=== PATIENT | female | born 1990 | race Caucasian/White ===

== ENCOUNTER 2016-08-19 21:14 | Emergency (ER) | payer OTHER ==
[~2016-08-19] VITALS: Ht 167.6 cm; Wt 68.5 kg
[~2016-08-19 21:14] MED LIST: CETI10CA PO; HC30CR25 TOP; NITR-58 PO; NIZ30CR2 TOP; PHEN-538 PO
[2016-08-19 21:55] VITALS: Ht 167.6 cm; Wt 68.5 kg
[2016-08-19] MEDS ORDERED: ACETAMINOPHEN 325 MG TAB PO ONE (23:30)
--- NOTE | 2016-08-19 23:47 | RADRPT ---
PROCEDURE: CHEST - 1 VIEW CLINICAL INDICATION: 25-year-old female with chest pain. TECHNIQUE: A single frontal AP upright portable view of the chest was performed. The images were reviewed on a PACS workstation. COMPARISON: None. FINDINGS: The cardiomediastinal silhouette has a normal appearance. There is no evidence for an infiltrate. T he pulmonary vascularity is within normal limits. There is no evidence for pneumothorax or pneumomed iastinum. The osseous structures are intact. IMPRESSION: No evidence for active cardiopulmonary disease. .Ezra Fletcher MD, MD Date Time Electronically viewed and signed by .Ezra Fletcher MD, on 08/19/2016 23:46 .M/
[2016-08-19] MEDS ORDERED: D-ME473S18 PO (23:52)
[2016-08-19] MEDS ORDERED: IBUP-1542 PO (23:52)
[2016-08-19] MEDS ORDERED: ACET325T33 PO (23:52)
[2016-08-19] MEDS ORDERED: BENZ1LOZ52 MM (23:56)
--- NOTE | 2016-08-20 00:06 | ERD ---
ER Documentation Chief Complaint Date/Time DATE: 08/19/16 TIME: 23:56 Chief Complaint Cough and rib pain since yesterday. fever and malaise HPI 25-year-old female presents with chief complaint of sore throat, cough, fever, and associated chest pain 2 days. Patient states that associated symptoms include pain with swallowing and loss of appetite. She currently rates her pain a 4 out of 10 in severity. She has not taken any medications for relief. She denies difficulty swallowing, drooling, vocal changes, palpitations, and nausea/vomiting. she denies any cardiac medical history. ROS All systems reviewed and are negative except as per history of present illness. Medications Home Meds Active Scripts Benzocaine/Menthol* (Cepacol* Sore Throat Lozenges) 1 Each Lozenge, 1 EACH MM q2h Y for SORE THROAT for 5 Days, #20 LOZENGE Prov:Zena Le PA-C 08/19/16 Acetaminophen* (Tylenol*) 325 Mg Tablet, 2 TAB PO Q6 Y for PAIN AND OR ELEVATED TEMP, #20 TAB Prov:Zena Le PA-C 08/19/16 Ibuprofen* (Motrin*) 600 Mg Tab, 600 MG PO Q6H Y for PAIN AND OR ELEVATED TEMP, #30 TAB Prov:Zena Le PA-C 08/19/16 Dextromethorphan Hb-Promethazine Hcl (Promethazine DM Syrup) 473 Ml Syrup, 5 ML PO Q6H for 5 Days, #4 OZ Prov:Zena Le PA-C 08/19/16 Ketoconazole* (Nizoral*) 2%-30 Gm Cream..g., 1 APPLIC TOP DAILY for 14 Days, TUB Prov:LEN IBARRA MD 03/27/16 Hydrocortisone* Topical (Hydrocortisone* Topical) 2.5%-28.3 Gm Cream..g., 1 APPLIC TOP BID for 10 Days, #1 TUB Prov:LEN IBARRA MD 03/27/16 Cetirizine Hcl* (Zyrtec*) 10 Mg Capsule, 10 MG PO DAILY, #30 TAB.CHEW Prov:LEN IBARRA MD 03/27/16 Reported Medications Phenazopyridine Hcl* (Pyridium*) 200 Mg Tab, 200 MG PO TID Y for DYSURIA, TAB 02/22/14 Nitrofurantoin Monohyd Macrocr* (Macrobid*) 100 Mg Capsr, 100 MG PO BID, CAP 02/22/14 Allergies Allergies: Coded Allergies: No Known Allergy (Unverified , 02/22/14) PMhx/Soc Medical and Surgical Hx: pt denies Surgical Hx History of Surgery: No Anesthesia Reaction: No Hx Neurological Disorder: No Hx Respiratory Disorders: No Hx Cardiac Disorders: No Hx Psychiatric Problems: Yes (anxiety) Hx Miscellaneous Medical Probl: Yes (DM2) Hx Alcohol Use: No Hx Substance Use: No Hx Tobacco Use: No Smoking Status: Never smoker Physical Exam Vitals Vital Signs Date Time Temp Pulse Resp B/P Pulse Ox O2 Delivery O2 Flow Rate FiO2 08/19/16 21:55 100.7 113 20 119/58 98 Physical Exam GENERAL: Non-toxic. No apparent signs of distress. HEENT: Atraumatic. Bilateral eyes are PERRL EOM intact. Normal conjunctiva, no injection. No eyelid or lower eyelid swelling noted. Ears: Normal tympanic membrane, no erythema or bulging. No ear canal swelling. No ear discharge. Nose : no nasal discharge. Throat: Oropharynx normal. Tongue pink and moist. Tonsillar erythema with no tonsillar exudate or erythema. No pooling of secretions. Uvula is midline. No trismus. No lymphadenopathy. LUNGS: Clear to auscultation. No accessory muscle use. No wheezing, no crackles. No signs or symptoms of respiratory distress. HEART: Regular rate and rhythm. No murmurs, clicks, rubs or gallops. BACK: No midline tenderness EXTREMITIES: No peripheral cyanosis or edema. No focal pain or notable trauma. Full range of motion. Good capillary refill. NEURO: The patient moves all 4 extremities with 5/5 strength. Cranial nerves are grossly intact. Normal mental status for age. Good muscle tone. SKIN: There is no apparent rash, petechiae, erythema or swelling. Good skin turgor. Results 24 hrs Current Medications Medications (Trade) Dose Ordered Sig/Opal Route PRN Reason Start Time Stop Time Status Last Admin Dose Admin Acetaminophen (Tylenol Tab) 650 mg ONCE ONCE PO 08/19/16 23:30 08/19/16 23:31 DC Procedures/MDM Patient presented with chest pain which is likely due to her cough, she states she has no cardiac history. Chest pain was not reproducible with pressure on the chest wall. I ordered an EKG and chest x-ray to rule out any acute cardiac abnormality or pneumonia. Patient given Tylenol for low-grade fever while waiting for results. Chest x-ray: IMPRESSION: No evidence for active cardiopulmonary disease. EKG: Rate/Rhythm: Normal Sinus Rhythm with rate of 80 bpm, artifact is present which is what likely caused EKG interpretation of sinus arrhythmia. However Dr. Ryder signed off on this EKG as normal. QRS, ST, T-waves: No changes consistent w/ acute ischemia Impression: No evidence of ischemia, normal EKG [place]: Normal I have low suspicion for pneumothorax, acute coronary syndrome, cardiac arrhythmia, and rib fracture. Patients multiple complaints are likely to be due to viral etiology. On examination there was no tonsillar edema or exudate, TMs were pink/pearly and non-bulging, lungs were CTAB w/o rhonchi or rales, and patient has no meningismus. Appears to be in NAD, vitals are stable. Therefore, I do not believe that any imaging or blood work is warranted. I have explained to the patient that antibiotics are not effective against viral infections, and can further contribute to antibiotic resistance. Patient advised to practice good hand hygiene to prevent spread of viruses. Patient advised to stay hydrated and use the following medications for symptomatic relief: - Tylenol to relieve [place]/fever/body aches. Patient advised to NOT exceed maximum daily dose of 3,000 mg. And Motrin 600mg (do NOT exceed 3200 mg per day ) - Phenergan DM for cough - Saline nasal mist for nasal dryness - Cepacol Lozenges for sore throat or warm salt water gargles I have a low suspicion for PE, pneumonia, TB, strep pharyngitis, peritonsillar abscess, epiglottitis, OM, meningitis, and sepsis. Patient is stable for discharge for and outpatient management at this time. Advised to follow-up with PCP within 1-2 days. Patient is afebrile at time of discharge. Departure Diagnosis: Primary Impression: Upper respiratory infection URI type: unspecified URI Qualified Code: J06.9 - Upper respiratory tract infection, unspecified type Condition: Good Patient Instructions: Preventing Common Respiratory Infections Additional Instructions: Call your primary care doctor TOMORROW for an appointment during the next 1-2 days.See the doctor sooner or return here if your condition worsens before your appointment time. Zena Le PA-C Aug 20, 2016 00:06
[2016-08-20 00:32] VITALS: BP 126/68; PULSE 78; RESP 20; TEMP 98.7
== END 2016-08-20 00:33 | disposition home or self-care (01) ==
LOC: FTE 21:14
DX: J06.9 Acute upper respiratory infection, unspecified (principal); E11.9 Type 2 diabetes mellitus without complications
CPT/HCPCS: 71010; 93005; Z7610

== ENCOUNTER 2017-04-14 22:42 | Emergency (ER) | payer OTHER ==
[~2017-04-14] VITALS: Ht 167.6 cm; Wt 71.7 kg
[~2017-04-14 22:42] MED LIST changes: +ACET325T33 PO; +BENZ1LOZ52 MM; +D-ME473S18 PO; +IBUP-1542 PO
[2017-04-14 22:45] VITALS: Ht 167.6 cm; Wt 71.7 kg
[2017-04-14 23:57] LABS: BASOPHILS % 0.4 % (0.0-2.0); EOSINOPHILS # 0.1 10^3/ul (0.0-0.5); EOSINOPHILS % 1.2 % (0.0-7.0); HEMATOCRIT 35.7 % (37.0-47.0); LYMPHOCYTES # 2.8 10^3/ul (0.8-2.9); LYMPHOCYTES % 27.7 % (15.0-51.0); MEAN CORPUSCULAR HEMOGLOBIN 32.8 pg (29.0-33.0); MEAN CORPUSCULAR HGB CONC 36.4 g/dl (32.0-37.0); MEAN CORPUSCULAR VOLUME 90.2 fl (82.0-101.0); MEAN PLATELET VOLUME 10.9 fl (7.4-10.4); MONOCYTE # 0.7 10^3/ul (0.3-0.9); MONOCYTES % 6.5 % (0.0-11.0); NEUTROPHIL # 6.5 10^3/ul (1.6-7.5); NEUTROPHILS % 63.5 % (39.0-77.0); PLATELET COUNT 324 10^3/UL (140-415); RED BLOOD COUNT 3.96 10^6/ul (4.20-5.40); RED CELL DISTRIBUTION WIDTH 11.7 % (11.5-14.5); WHITE BLOOD COUNT 10.3 10^3/ul (4.8-10.8)
--- NOTE | 2017-04-15 | RADRPT ---
PROCEDURE: US OB. CLINICAL INDICATION: Vaginal bleeding. Positive TECHNIQUE: Transabdominal and transvaginal views of the pelvis are available for review. COMPARISON: No prior studies are available for comparison. FINDINGS: Uterus: No evidence of masses and normal in size. Endometrial cavity: Intrauterine gestational sac, yolk sac and pole are present with the foll owing information: [place]-rump length:0.66 cm heart rate:131 bpm Gestational sac:2.08 cm Ultrasound estimated gestational age:6 weeks 5 days No evidence of subchorionic hemorrhage Right ovary/adnexa: Ovarian size is normal estimated at 3.4 x 2.7 x 3.1 cm. No ovarian or adnexal mass lesion is seen. Left ovary/adnexa: The ovary is not visualized. There is no evidence of adnexal mass or free fluid . Cul-de-sac: There is no free fluid. RPTAT:HJJR IMPRESSION: 1. Single viable intrauterine with an estimated gestational age of 6 weeks 5 days, the es timated date of delivery 12/03/2017. 2. No evidence of subchorionic hemorrhage. Physician Sonia Date Time Electronically viewed and signed by Physician Sonia on 04/15/2017 00:00 /
[2017-04-15 00:19] LABS: ADD UMIC YES; UR ASCORBIC ACID 20 mg/dL (NEGATIVE); UR BILIRUBIN (Dip) NEGATIVE (NEGATIVE); UR BLOOD (Dip) NEGATIVE (NEGATIVE); UR CLARITY SLIGHTLY CLOUDY (CLEAR); UR COLOR YELLOW (YELLOW); UR GLUCOSE (Dip) NEGATIVE (NEGATIVE); UR KETONES (Dip) TRACE mg/dL (NEGATIVE); UR LEUKOCYTE ESTERASE (Dip) NEGATIVE Leu/ul (NEGATIVE); UR MUCUS FEW /HPF (NONE SEEN); UR NITRITE (Dip) NEGATIVE (NEGATIVE); UR RBC 2 /HPF (0-5); UR SPECIFIC GRAVITY (Dip) 1.031 (1.003-1.030); UR SQUAMOUS EPITHELIAL CELL MODERATE /HPF (FEW); UR TOTAL PROTEIN (Dip) 1+ mg/dl (NEGATIVE); UR UROBILINOGEN (Dip) 1+ mg/dL (NEGATIVE)
--- NOTE | 2017-04-15 00:53 | ERD ---
ER Documentation Chief Complaint Chief Complaint 8 weeks . right pelvic pain, back pain HPI Patient is a , last menstrual cycle February 09, 2017, 26-year-old female presenting to the emergency department with complaints of intermittent right- sided pelvic pain for the past 2 weeks. Symptoms became constant tonight. She reports radiation to the right low back. Pain is cramping in nature. She denies vaginal discharge, bleeding, fevers, dysuria, or other symptoms at this time. She has only had an at home test to confirm , she has had no [employer] care for this . She has had no ultrasound for this . ROS All systems reviewed and are negative except as per history of present illness. Medications Home Meds Active Scripts Benzocaine/Menthol* (Cepacol* Sore Throat Lozenges) 1 Each Lozenge, 1 EACH MM q2h Y for SORE THROAT for 5 Days, #20 LOZENGE Prov:Zena Le PA-C 08/19/16 Acetaminophen* (Tylenol*) 325 Mg Tablet, 2 TAB PO Q6 Y for PAIN AND OR ELEVATED TEMP, #20 TAB Prov:Zena Le PA-C 08/19/16 Ibuprofen* (Motrin*) 600 Mg Tab, 600 MG PO Q6H Y for PAIN AND OR ELEVATED TEMP, #30 TAB Prov:Zena Le PA-C 08/19/16 Dextromethorphan Hb-Promethazine Hcl (Promethazine DM Syrup) 473 Ml Syrup, 5 ML PO Q6H for 5 Days, #4 OZ Prov:Zena Le PA-C 08/19/16 Ketoconazole* (Nizoral*) 2%-30 Gm Cream..g., 1 APPLIC TOP DAILY for 14 Days, TUB Prov:LEN IBARRA MD 03/27/16 Hydrocortisone* Topical (Hydrocortisone* Topical) 2.5%-28.3 Gm Cream..g., 1 APPLIC TOP BID for 10 Days, #1 TUB Prov:LEN IBARRA MD 03/27/16 Cetirizine Hcl* (Zyrtec*) 10 Mg Capsule, 10 MG PO DAILY, #30 TAB.CHEW Prov:LEN IBARRA MD 03/27/16 Reported Medications Phenazopyridine Hcl* (Pyridium*) 200 Mg Tab, 200 MG PO TID Y for DYSURIA, TAB 02/22/14 Nitrofurantoin Monohyd Macrocr* (Macrobid*) 100 Mg Capsr, 100 MG PO BID, CAP 02/22/14 Allergies Allergies: Coded Allergies: No Known Allergy (Unverified , 02/22/14) PMhx/Soc Medical and Surgical Hx: pt denies Surgical Hx History of Surgery: No Anesthesia Reaction: No Hx Neurological Disorder: No Hx Respiratory Disorders: No Hx Cardiac Disorders: No Hx Psychiatric Problems: Yes (Anxiety) Hx Miscellaneous Medical Probl: Yes (DM2) Hx Alcohol Use: No Hx Substance Use: No Hx Tobacco Use: No Smoking Status: Never smoker Physical Exam Vitals Vital Signs Date Time Temp Pulse Resp B/P Pulse Ox O2 Delivery O2 Flow Rate FiO2 04/14/17 22:45 98.7 94 20 116/58 99 Physical Exam Const: Nontoxic, well-appearing female in no acute distress. Head: Atraumatic Eyes: Normal Conjunctiva ENT: Normal External Ears, Nose and Mouth. Neck: Full range of motion..~ No meningismus. Resp: Clear to auscultation bilaterally Cardio: Regular rate and rhythm, no murmurs Abd: Soft, non tender, non distended. Normal bowel sounds. No McBurney's point tenderness. Skin: No petechiae or rashes Back: No midline or flank tenderness. No CVA tenderness. Ext: No cyanosis, or edema Neur: Awake and alert Psych: Normal Mood and Affect Result Diagram: 04/14/17 2310 Results 24 hrs Laboratory Tests Test 04/14/17 23:10 White Blood Count 10.310^3/ul Red Blood Count 3.9610^6/ul Hemoglobin 13.0g/dl Hematocrit 35.7% Mean Corpuscular Volume 90.2fl Mean Corpuscular Hemoglobin 32.8pg Mean Corpuscular Hemoglobin Concent 36.4g/dl Red Cell Distribution Width 11.7% Platelet Count 74608^3/UL Mean Platelet Volume 10.9fl Neutrophils % 63.5% Lymphocytes % 27.7% Monocytes % 6.5% Eosinophils % 1.2% Basophils % 0.4% Nucleated Red Blood Cells % 0.0/100WBC Neutrophils # 6.510^3/ul Lymphocytes # 2.810^3/ul Monocytes # 0.710^3/ul Eosinophils # 0.110^3/ul Basophils # 0.010^3/ul Nucleated Red Blood Cells # 0.010^3/ul Urine Color YELLOW Urine Clarity SLIGHTLY CLOUDY Urine pH 5.0 Urine Specific [place] 1.031 Urine Ketones TRACEmg/dL Urine Nitrite NEGATIVEmg/dL Urine Bilirubin NEGATIVEmg/dL Urine Urobilinogen 1+mg/dL Urine Leukocyte Esterase NEGATIVELeu/ul Urine Microscopic RBC 2/HPF Urine Microscopic WBC 4/HPF Urine Squamous Epithelial Cells MODERATE/HPF Urine Mucus FEW/HPF Urine Hemoglobin NEGATIVEmg/dL Urine Glucose NEGATIVEmg/dL Urine Total Protein 1+mg/dl Procedures/MDM Patient is a pleasant 26-year-old female presenting to the emergency department with complaints of pelvic pain. The patient declined pain medication in the department. CBC showed no signs of leukocytosis or anemia. Urinalysis is not concerning for urinary tract infection. She states her pain improved significantly during her ED course. Ultrasound showed a single viable intrauterine with an estimated gestational age of 6 weeks 5 days. No evidence of subchorionic hemorrhage. Patient stable for discharge with close OB /[employer] follow-up. She is to return immediately for any new or worsening symptoms. Low suspicion for ectopic , tubo-ovarian abscess, or other emergent conditions at time of discharge. PROCEDURE: US OB. CLINICAL INDICATION: Vaginal bleeding. Positive TECHNIQUE: Transabdominal and transvaginal views of the pelvis are available for review. COMPARISON: No prior studies are available for comparison. FINDINGS: Uterus: No evidence of masses and normal in size. Endometrial cavity: Intrauterine gestational sac, yolk sac and pole are present with the following information: [place]-rump length: 0.66 cm heart rate: 131 bpm Gestational sac: 2.08 cm Ultrasound estimated gestational age: 6 weeks 5 days No evidence of subchorionic hemorrhage Right ovary/adnexa: Ovarian size is normal estimated at 3.4 x 2.7 x 3.1 cm. No ovarian or adnexal mass lesion is seen. Left ovary/adnexa: The ovary is not visualized. There is no evidence of adnexal mass or free fluid. Cul-de-sac: There is no free fluid. RPTAT:HJJR IMPRESSION: 1. Single viable intrauterine with an estimated gestational age of 6 weeks 5 days, the estimated date of delivery 12/03/2017. 2. No evidence of subchorionic hemorrhage. Physician Sonia Date Time Electronically viewed and signed by [place] Physician on 04/15/2017 00:00 Departure Diagnosis: Primary Impression: Pelvic pain complicating Trimester: first trimester Qualified Code: O26.891 - Pelvic pain affecting in first trimester, antepartum Condition: Fair Patient Instructions: Pelvic Pain In : Unclear (2-3 Trimester) Referrals: PATEL RODRIGUES (PCP) [employer] [place] [id number] [facility] [address] [place], [place] [phone] OFFICE FAX [facility] [address] [place], [place] [phone] [address] CAOFORMERLY [facility] [address] [place], [place] [phone] [facility] [id number] [facility] [id number] [facility] [address] [place] [address] [facility] [address] [place], [place] [id number] [address] [facility] [id number] - [address] [facility] [phone] KRISTIN [place]INAO [address] [facility]. [address], [facility] [id number] [address] [facility] [address] [place], [place] [phone] Additional Instructions: Call your primary care doctor TOMORROW for an appointment during the next 1-2 days.See the doctor sooner or return here if your condition worsens before your appointment time. Call your primary care doctor TOMORROW for an appointment during the next 1 WEEK.Tell the corporate secretary that you were referred from this facility. See the doctor sooner or return here if your condition worsens before your appointment time. FERDINAND MEJIA PA-C Apr 15, 2017 00:53
== END 2017-04-15 00:39 | disposition home or self-care (01) ==
LOC: FTE 22:42
DX: O26.891 Other specified pregnancy related conditions, first trimester (principal); R10.2 Pelvic and perineal pain; E11.9 Type 2 diabetes mellitus without complications; O24.111 Pre-existing type 2 diabetes mellitus, in pregnancy, first trimester; Z3A.01 Less than 8 weeks gestation of pregnancy
CPT/HCPCS: 36415; 76801; 81001; 84702; 85025; 86900; 86901; Z7502

== ENCOUNTER 2017-05-25 17:38 | Emergency (ER) | END 2017-05-25 23:36 | disposition home or self-care (01) ==

== ENCOUNTER 2017-08-10 23:30 | Outpatient (CLI) | END 2017-08-11 03:50 | disposition home or self-care (01) ==